=== PATIENT | male | born 1950 | race Caucasian/White ===

== ENCOUNTER 2023-12-28 12:29 | Outpatient (REF) | payer MEDICARE, SELFPAY ==
[2023-12-28 15:44] LABS: Abs Immature Grans 0.03 10^3/uL (0.0-0.06); Absolute Basophil Count 0.05 10^3/uL (0.0-0.2); Absolute Eosinophil Count 0.09 10^3/uL (0.0-0.7); Absolute Lymphocyte Count 2.04 10^3/uL (1.2-3.4); Absolute Monocyte Count 0.73 10^3/uL (0.1-0.8); Absolute Neutrophil Count 6.35 10^3/uL (1.2-6.7); Basophils % 0.5; HCT 46.6 % (40.0-50.0); HGB 15.9 g/dL (13.5-17.5); Immature Grans % 0.3; MCH 32.3 pg (27.0-33.0); MCHC 34.1 % (32.0-36.0); MCV 95 fL (80-95); MPV 8.8 fL (8.0-11.0); Monocytes % 7.9; Neutrophils % 68.3; Platelet Count 309 10^3/uL (130-400); RBC 4.92 10^6/uL (4.36-5.78); RDW 13.4 % (11.8-14.1); RDW-SD 47.4 fL; WBC 9.29 10^3/uL (4.4-10.8)
[2023-12-28 15:53] LABS: Prothrombin Time 9.9 sec (9.1-11.1)
[2023-12-28 16:08] LABS: ALT 37 U/L (16-63); AST 21 U/L (15-37); Albumin 3.7 g/dL (3.4-5.0); Alkaline Phosphatase 109 U/L (46-116); Anion Gap 7.9 mmol/L (3-11); BUN 12 mg/dL (7-18); Bilirubin, Total 0.6 mg/dL (0.2-1.0); CO2 26.1 mmol/L (21.0-32.0); Calcium 8.5 mg/dL (8.5-10.1); Chloride 98 mmol/L (98-107); Estimated GFR 78.49 (mL/min/1.73m2); Glucose 88 mg/dL (74-106); Potassium 4.7 mmol/L (3.5-5.1); Sodium 132 mmol/L (136-145); TSH (W/Ref FT4) 4.25 uIU/mL (0.36-3.74); Total Protein 6.6 g/dL (6.4-8.2)
[2023-12-28 16:38] LABS: FREE T4 0.93 ng/dL (0.76-1.46)
[2023-12-28 22:59] LABS: PSA, Screening 2.4 ng/mL (<=6.5)
== END 2023-12-28 12:30 | disposition home or self-care (01) ==
LOC: NCHCN 12:29
PROVIDERS: PCP General Practice; Visit Provider Student in an Organized Health Care Education/Training Program
DX: R63.4 Abnormal weight loss (principal); F10.10 Alcohol abuse, uncomplicated; Z12.5 Encounter for screening for malignant neoplasm of prostate
CPT/HCPCS: 80053; 84153; 84439; 84443; 85025; 85610